=== PATIENT | female | born 1975 | race African-American/Black ===

== ENCOUNTER 2017-08-16 13:38 | Emergency (ER) | payer OTHER ==
[2017-08-16 13:55] VITALS: BP 92/60; PULSE 72; RESP 18; TEMP 98.4
--- NOTE | 2017-08-16 14:14 | ED ---
URI HPI - General Chief Complaint: Upper Respiratory Infection Stated Complaint: ear ache Time Seen by Provider: 08/16/17 13:46 Source: patient, RN notes reviewed Mode of arrival: ambulatory Limitations: no limitations - History of Present Illness Initial Comments: This is a 42-year-old female who presents to the emergency department with chief complaint of upper respiration symptoms. Patient states that she developed symptoms 4 days ago. She believed that it was just her seasonal allergies. She reports sinus congestion and right ear fullness. Patient states that yesterday she developed pain in her left ear. She states that she feels like she is off balance and has difficulty hearing. Denies any fevers or chills. Denies cough or sore throat. Denies shortness of breath or chest pain , abdominal pain, nausea or vomiting. - Related Data Previous Rx's Medication Instructions Recorded Amoxicillin 875 mg PO Q8HR #30 tablet 08/16/17 Allergies Allergy/AdvReac Type Severity Reaction Status Date / Time No Known Allergies Allergy Verified 08/16/17 13:55 Review of Systems ROS Statement: Those systems with pertinent positive or pertinent negative responses have been documented in the HPI. ROS Other: All systems not noted in ROS Statement are negative. Past Medical History Past Medical History: No Reported History History of Any Multi-Drug Resistant Organisms: None Reported Past Surgical History: Tubal Ligation Additional Past Surgical History / Comment(s): right breast biopsy Past Psychological History: No Psychological Hx Reported Smoking Status: Current every day smoker Past Alcohol Use History: Occasional Past Drug Use History: None Reported General Exam - General Exam Comments Initial Comments: General: Awake and alert, well-developed; in no apparent distress. Patient does not appear acutely ill. HEENT: Head atraumatic, normocephalic. Pupils are equal, round and reactive to light. Extraocular movements intact. Oropharynx moist without erythema or exudate. Unable to visualize bilateral TMs due to cerumen impaction. Neck: Supple. Normal ROM. Cardiovascular: Regular rate and rhythm. No murmurs, rubs or gallops. Chest symmetrical. Respiratory: Lungs clear to auscultation bilaterally. No wheezes, rales or rhonchi. Normal respiratory effort with no use of accessory muscles. Musculoskeletal: Normal ROM, no tenderness bilateral upper and lower extremities. Ambulating normally. Skin: [place], warm and dry without rashes or lesions. Neurological: Alert and oriented x3. CN II-XII grossly intact. Speech is fluent and answers are appropriate. No focal neuro deficits. Psychiatric: Normal mood and affect. No overt signs of depression or anxiety noted. Limitations: no limitations Course Vital Signs 08/16/17 13:51 Temperature 98.4 F Pulse Rate 72 Respiratory 18 Rate Blood Pressure 92/60 O2 Sat by Pulse 98 Oximetry Medical Decision Making - Medical Decision Making This is a 42-year-old female who presents to the emergency department with chief complaint of upper respiratory symptoms. Patient first developed right ear fullness and sinus congestion 4 days ago. Yesterday, she then developed pain in her left ear. I'm unable to visualize the TMs due to cerumen impaction. Patient's vital signs are stable and she is afebrile. Likely suffering from a viral upper respiratory infection, however due to the acute onset of left ear pain, patient will be treated for an otitis media. She is in no acute distress and will be discharged home at this time. She is in agreement and voices understanding. All questions were answered. Disposition Clinical Impression: Upper respiratory infection, Otalgia of left ear Disposition: HOME SELF-CARE Condition: Good Instructions: Upper Respiratory Infection (ED), Otitis Media (ED), Earache (ED) Additional Instructions: Please take medications as prescribed. Please follow up with primary care provider within 1-2 days. Return to emergency department if symptoms should worsen or any concerns arise. Prescriptions: Amoxicillin 875 mg PO Q8HR #30 tablet Is patient prescribed a controlled substance at d/c from ED?: No Referrals: None,Stated [Primary Care Provider] - 1-2 days Time of Disposition: 14:21
== END 2017-08-16 14:35 | disposition home or self-care (01) ==
LOC: EC 13:38
DX: J06.9 Acute upper respiratory infection, unspecified (principal); H92.02 Otalgia, left ear; H61.23 Impacted cerumen, bilateral; F17.200 Nicotine dependence, unspecified, uncomplicated
CPT/HCPCS: 99283

== ENCOUNTER → 2017-11-06 | Outpatient (CLI) | payer OTHER ==
--- NOTE | 2017-11-06 19:51 | XR ---
EXAMINATION TYPE: XR chest 2V DATE OF EXAM: 11/06/2017 COMPARISON: 06/07/2014 INDICATION: Mid back pain, pleurisy TECHNIQUE: Frontal and lateral views of the chest are obtained. FINDINGS: The heart size is normal. The pulmonary vasculature is normal. The lungs are clear. IMPRESSION: 1. No acute pulmonary process.
== END | disposition home or self-care (01) ==
LOC: RADXRMAIN 14:06
PROVIDERS: ATTEND Internal Medicine
DX: R09.1 Pleurisy (principal); M54.9 Dorsalgia, unspecified
CPT/HCPCS: 71046

== ENCOUNTER → 2020-02-16 | Outpatient (CLI) | payer BC, OTHER ==
--- NOTE | 2020-02-16 10:38 | CT ---
EXAMINATION TYPE: CT brain wo con DATE OF EXAM: 02/16/2020 COMPARISON: CT 06/04/2011 HISTORY: Headache, Syncope CT DLP: 1029.1 mGycm. Automated Exposure Control for Dose Reduction was Utilized. TECHNIQUE: CT scan of the head is performed without contrast. FINDINGS: There is no acute intracranial hemorrhage, mass effect, or midline shift identified. The ventricles and sulci are within normal limits in size. The globes are intact and the visualized sin uses are remarkable for minimal inflammatory change in the sphenoid sinus. Cerumen present in the ext ernal auditory canal bilaterally. IMPRESSION: No acute intracranial hemorrhage, mass effect, or midline shift is seen. Additional find ings above.
== END | disposition home or self-care (01) ==
LOC: RADCTMAIN 06:32
PROVIDERS: ATTEND Internal Medicine
DX: R55 Syncope and collapse (principal); R51.9 Headache, unspecified
CPT/HCPCS: 70450

== ENCOUNTER → 2020-08-22 | Outpatient (CLI) | payer BC, OTHER ==
--- NOTE | 2020-08-22 10:25 | US ---
EXAMINATION TYPE: US abdomen complete DATE OF EXAM: 08/22/2020 COMPARISON: NONE CLINICAL HISTORY: R10.12 LUQ Pain. Patient states LUQ pain EXAM MEASUREMENTS: Liver Length: 16.4 cm Gallbladder Wall: 0.1 cm CBD: 0.2 cm Spleen: 7.6 cm Right Kidney: 11.2 x 4.2 x 3.7 cm Left Kidney: 10.0 x 4.3 x 3.7 cm Pancreas: wnl Liver: wnl Gallbladder: wnl Evidence for sonographic Meneses's sign: neg CBD: wnl Spleen: Limited visualized by overlying bowel gas Right Kidney: No hydronephrosis or masses seen Left Kidney: No hydronephrosis or masses seen Upper IVC: wnl Abd Aorta: No AAA visualized atherosclerotic irregularity. IMPRESSION: 1. The spleen is not well visualized due to overlying artifact. 2. No gallstones. 3. No hydronephrosis or shadowing renal calculi.
== END | disposition home or self-care (01) ==
LOC: RADUSWWP 08:04
PROVIDERS: ATTEND Internal Medicine
DX: R10.12 Left upper quadrant pain (principal)
CPT/HCPCS: 76700

== ENCOUNTER 2023-05-06 16:39 | Emergency (ER) | payer BC, OTHER ==
[2023-05-06 16:52] VITALS: BP 129/96; PULSE 94; RESP 16; TEMP 98.8
--- NOTE | 2023-05-06 17:10 | ED ---
Extremity Problem HPI - General Source: patient, RN notes reviewed Mode of arrival: ambulatory Limitations: no limitations <Valeria Reynolds - Last Filed: 05/06/23 17:09> <Kemar Purvis - Last Filed: 05/06/23 21:19> - General Chief complaint: Extremity Problem,Nontraumatic Stated complaint: Rt foot pain, weak Time Seen by Provider: 05/06/23 17:09 - History of Present Illness Initial comments: Patient is a 47-year-old female presented to ER with a chief complaint of right ankle pain. Denies any injury. Patient states been on for the past couple of days. (Valeria Reynolds) 47-year-old female presenting to the ED with a chief complaint of right ankle pain. Denies any injury or trauma. States she has had pain at the bottom of her foot/ankle for the past few days. States pain is worse with ambulation. No other complaints at this time. (Kemar Purvis) - Related Data Previous Rx's Medication Instructions Recorded Amoxicillin 875 mg PO Q8HR #30 tablet 08/16/17 Penicillin V Potassium [Pen Vee K] 500 mg PO TID 10 Days #30 tablet 01/05/23 Allergies Allergy/AdvReac Type Severity Reaction Status Date / Time No Known Allergies Allergy Verified 01/05/23 15:36 Review of Systems ROS Other: All systems not noted in ROS Statement are negative. <Valeria Reynolds - Last Filed: 05/06/23 17:09> ROS Other: All systems not noted in ROS Statement are negative. <Kemar Purvis - Last Filed: 05/06/23 21:19> ROS Statement: Those systems with pertinent positive or pertinent negative responses have been documented in the HPI. Past Medical History Past Medical History: No Reported History History of Any Multi-Drug Resistant Organisms: None Reported Past Surgical History: Tubal Ligation Additional Past Surgical History / Comment(s): right breast biopsy, rhinoplasty Past Psychological History: No Psychological Hx Reported Smoking Status: Current every day smoker Past Alcohol Use History: Occasional Past Drug Use History: None Reported <Valeria Reynolds - Last Filed: 05/06/23 17:09> General Exam Limitations: no limitations <Valeria Reynolds - Last Filed: 05/06/23 17:09> General appearance: alert, in no apparent distress Head exam: Present: atraumatic, normocephalic Neck exam: Present: normal inspection Respiratory exam: Present: normal lung sounds bilaterally Cardiovascular Exam: Present: regular rate, normal rhythm GI/Abdominal exam: Present: soft Extremities exam: Present: other (Right lower extremity shows full strength and sensation. DP/PT pulses 2+. Right foot/ankle shows no other skin changes including warmth, erythema, edema, ecchymosis.) Neurological exam: Present: alert, oriented X3 <Kemar Purvis - Last Filed: 05/06/23 21:19> - General Exam Comments Initial Comments: Visual Physical Exam Vital signs reviewed General: Well-appearing, nontoxic, no acute distress. Head: Normocephalic, atraumatic Eyes: PERRLA, EOMI ENT: Airway patent Chest: Nonlabored breathing Skin: No visual rash, normal skin tone Neuro: Alert and oriented 3 Musculoskeletal: No gross abnormalities (Valeria Reynolds) Course Vital Signs 05/06/23 16:42 Temperature 98.8 F Pulse Rate 94 Respiratory 16 Rate Blood Pressure 129/96 O2 Sat by Pulse 96 Oximetry Medical Decision Making <Valeria Reynolds - Last Filed: 05/06/23 17:09> <Kemar Purvis - Last Filed: 05/06/23 21:19> - Medical Decision Making I performed the quick note portion of the exam. Electronically signed by Valeria Reynolds PA-C (Valeria Reynolds) Was pt. sent in by a medical professional or institution ([facility], SAMPLING THEORY TEACHER, urgent care, hospital, or correction...) When possible be specific @ -No Did you speak to anyone other than the patient for history (EMS, parent, family, police, friend...)? What history was obtained from this source @ -No Did you review nursing and triage notes (agree or disagree)? Why? @ -I reviewed and agree with nursing and triage notes Were old charts reviewed (outside hosp., previous admission, EMS record, old EKG, old radiological studies, urgent care reports/EKG's, correction records)? Report findings @ -No old charts were reviewed Differential Diagnosis (chest pain, altered mental status, abdominal pain women, abdominal pain men, vaginal bleeding, weakness, fever, dyspnea, syncope, headache, dizziness, GI bleed, back pain, seizure, CVA, palpatations, mental health, musculoskeletal)? @ -Differential Musculoskeletal Muscular strain, contusion, ligament sprain, fracture, arthritis, septic arthritis, bursitis, cellulitis, muscle spasm, nerve compression, DVT, arterial occlusion, herpes zoster, electrolyte abnormality, tumor.... This is not meant to be in all inclusive list EKG interpreted by me (3pts min.). @ -None X-rays interpreted by me (1pt min.). @ -X-ray of the right foot and ankle interpreted by me showing no evidence of acute finding. CT interpreted by me (1pt min.). @ -None done U/S interpreted by me (1pt. min.). @ -Ultrasound of the right lower extremity interpreted by me showing no evidence of DVT or other acute finding. What testing was considered but not performed or refused? (CT, X-rays, U/S, labs)? Why? @ -None What meds were considered but not given or refused? Why? @ -None Did you discuss the management of the patient with other professionals (professionals i.e. , PA, SAMPLING THEORY TEACHER, lab, RT, psych nurse, director social service, or scrub tech, teacher, press officer, correctional case manager)? Give summary @ -No Was smoking cessation discussed for >3mins.? @ -No Was critical care preformed (if so, how long)? @ -No Were there social determinants of health that impacted care today? How? (Homelessness, low income, unemployed, alcoholism, drug addiction, transportation, low edu. Level, literacy, decrease access to med. care, retirement, re hab)? @ -No Was there de-escalation of care discussed even if they declined (Discuss DNR or withdrawal of care, Hospice)? DNR status @ -No What co-morbidities impacted this encounter? (DM, HTN, Smoking, COPD, CAD, Cancer, CVA, ARF, Chemo, Hep., AIDS, mental health diagnosis, sleep apnea, morbid obesity)? @ -None Was patient admitted / discharged? Hospital course, mention meds given and route, prescriptions, significant lab abnormalities, going to OR and other pertinent info. @ -Discharge 47-year-old female presenting to the ED with a chief complaint of right foot/ankle pain for the past few days worse with ambulation. Imaging studies at this time revealed no evidence of acute findings. Symptoms likely musculoskeletal in nature. Discharged home in stable condition. At discharge vital signs stable afebrile. Advised to follow-up with her PCP. Discussed return precaution patient verbalized agreement. Undiagnosed new problem with uncertain prognosis? @ -No Drug Therapy requiring intensive monitoring for toxicity (Heparin, Nitro, Insulin, Cardizem)? @ -No Were any procedures done? @ -No Diagnosis/symptom? @ -Right foot/Ankle pain Acute, or Chronic, or Acute on Chronic? @ -Acute Uncomplicated (without systemic symptoms) or Complicated (systemic symptoms)? @ -Uncomplicated Side effects of treatment? @ -No Exacerbation, Progression, or Severe Exacerbation? @ -No Poses a threat to life or bodily function? How? (Chest pain, [place], [place], pneumonia, PE, COPD, DKA, ARF, appy, cholecystitis, CVA, Diverticulitis, Homicidal, Suicidal, threat to staff... and all critical care pts) @ -No (Kemar Purvis) Disposition <Valeria Reynolds - Last Filed: 05/06/23 17:09> Is patient prescribed a controlled substance at d/c from ED?: No Time of Disposition: 21:19 <Kemar Purvis - Last Filed: 05/06/23 21:19> Clinical Impression: Right ankle pain Disposition: HOME SELF-CARE Condition: Good Additional Instructions: Please return to the Emergency Department if symptoms worsen or any other concerns. Please follow-up with your primary care provider. Referrals: None,Stated [Primary Care Provider] - 1-2 days
--- NOTE | 2023-05-06 17:32 | XR ---
EXAMINATION TYPE: XR ankle complete RT, XR foot complete RT DATE OF EXAM: 05/06/2023 5:20 PM CLINICAL INDICATION:Female, 47 years old with history of pain; [facility] COMPARISON: 11/27/2013 TECHNIQUE: XR ankle complete RT, XR foot complete RT; ankle is imaged in frontal, lateral and obliqu e projections. FINDINGS: There is no evidence of acute osseous pathology. The joint spaces are well-preserved without evidenc e of subluxation or dislocation. Kager's fat pad is intact. Soft tissues are within normal limits. No radiopaque foreign bodies are identified. IMPRESSION: 1. No evidence of acute fracture.
--- NOTE | 2023-05-06 20:48 | US ---
EXAMINATION TYPE: US venous doppler duplex LE RT DATE OF EXAM: 05/06/2023 7:30 PM COMPARISON: NONE CLINICAL INDICATION: Female, 47 years old with history of r/o dvt; Ankle and foot swelling. No hx of DVT. Not on blood thinners SIDE PERFORMED: Right TECHNIQUE: The lower extremity deep venous system is examined utilizing real time linear array sonog ayaz with graded compression, doppler sonography and color-flow sonography. VESSELS IMAGED: Common Femoral Vein Deep Femoral Vein Greater Saphenous Vein * Femoral Vein Popliteal Vein Small Saphenous Vein * Proximal Calf Veins (* superficial vessels) Right Leg: Negative for DVT IMPRESSION: Grayscale, color doppler, spectral doppler imaging performed of the deep veins of the lo wer extremities. There is normal flow, compressibility, vascular waveforms.
[2023-05-06] MEDS ORDERED: ACET/COD 300 MG/30 MG STARTER PACK 6 TAB BTL PO STA (21:14)
[2023-05-06] MEDS ORDERED: KETOROLAC 15 MG/ML 1 ML VIAL IM STA (21:14)
== END 2023-05-06 21:30 | disposition home or self-care (01) ==
LOC: EC 16:39
DX: M25.571 Pain in right ankle and joints of right foot (principal); F17.200 Nicotine dependence, unspecified, uncomplicated
CPT/HCPCS: 73610; 73630; 93971; 99284; 96372; J1885

== ENCOUNTER 2024-07-02 11:21 | Emergency (ER) | payer BC ==
--- NOTE | 2024-07-02 11:38 | ED ---
ENT HPI - General Chief complaint: Dental/Oral Stated complaint: Dental issue Time Seen by Provider: 07/02/24 11:36 Source: patient, RN notes reviewed Mode of arrival: ambulatory Limitations: no limitations - History of Present Illness Initial comments: This is a 49-year-old female with no reported medical conditions presents emergency room for complaint of dental pain. Patient states that she has recently enrolled in health insurance and is tempting to make an appoint with dentist. She is concerned that she has been having dental pain most notably in the front maxillary teeth that is been worsening over the past few days. Patient states that over the past 2 days she has noticed swelling of the upper lip. She denies fevers, chills, dysphagia, difficulty breathing. Denies current or recent antibiotic use. She has been taking ibuprofen and Tylenol with minimal relief of symptoms. No other acute complaints at this time. - Related Data Previous Rx's Medication Instructions Recorded Amoxicillin 875 mg PO Q8HR #30 tablet 08/16/17 Penicillin V Potassium [Pen Vee K] 500 mg PO TID 10 Days #30 tablet 01/05/23 Amoxicillin 875 mg PO Q12HR #20 tablet 07/02/24 Ibuprofen [Motrin] 800 mg PO Q6HR #30 tab 07/02/24 Allergies Allergy/AdvReac Type Severity Reaction Status Date / Time No Known Allergies Allergy Verified 07/02/24 11:35 Review of Systems ROS Statement: Those systems with pertinent positive or pertinent negative responses have been documented in the HPI. ROS Other: All systems not noted in ROS Statement are negative. Past Medical History Past Medical History: No Reported History History of Any Multi-Drug Resistant Organisms: None Reported Past Surgical History: Tubal Ligation Additional Past Surgical History / Comment(s): right breast biopsy, rhinoplasty Past Psychological History: No Psychological Hx Reported Smoking Status: Current every day smoker Past Alcohol Use History: Occasional Past Drug Use History: None Reported General Exam Limitations: no limitations General appearance: alert, in no apparent distress Expanded Teeth exam: Present: dental caries, fractured tooth #, dental tenderness #, other (dental abscess of the frontal maxillary teeth). Absent: normal inspection Neck exam: Present: normal inspection. Absent: tenderness, meningismus, lymphadenopathy Respiratory exam: Present: normal lung sounds bilaterally. Absent: respiratory distress, wheezes, rales, rhonchi, stridor Cardiovascular Exam: Present: regular rate, normal rhythm, normal heart sounds. Absent: systolic murmur, diastolic murmur, rubs, gallop, clicks GI/Abdominal exam: Present: soft, normal bowel sounds. Absent: distended, tenderness, guarding, rebound, rigid Course Vital Signs 07/02/24 07/02/24 11:32 12:33 Temperature 98.0 F 98.6 F Pulse Rate 70 111 H Respiratory 17 20 Rate Blood Pressure 118/81 160/99 O2 Sat by Pulse 97 99 Oximetry Medical Decision Making - Medical Decision Making Was pt. sent in by a medical professional or institution (, [facility], DAY CARE HOME MOTHER, urgent care, hospital, or correction...) When possible be specific @ -No Did you speak to anyone other than the patient for history (EMS, parent, family, police, friend...)? What history was obtained from this source @ -No Did you review nursing and triage notes (agree or disagree)? Why? @ -I reviewed and agree with nursing and triage notes Were old charts reviewed (outside hosp., previous admission, EMS record, old EKG, old radiological studies, urgent care reports/EKG's, correction records)? Report findings @ -No old charts were reviewed Differential Diagnosis (chest pain, altered mental status, abdominal pain women, abdominal pain men, vaginal bleeding, weakness, fever, dyspnea, syncope, headache, dizziness, GI bleed, back pain, seizure, CVA, palpatations, mental health, musculoskeletal)? @ -Dental abscess, pulpitis, gingivitis, fractured tooth, this list is not all inclusive EKG interpreted by me (3pts min.). @ -None X-rays interpreted by me (1pt min.). @ -None done CT interpreted by me (1pt min.). @ -None done U/S interpreted by me (1pt. min.). @ -None done What testing was considered but not performed or refused? (CT, X-rays, U/S, labs)? Why? @ -None What meds were considered but not given or refused? Why? @ -None Did you discuss the management of the patient with other professionals (professionals i.e. , [facility], DAY CARE HOME MOTHER, lab, RT, psych nurse, social science professor, supervisor ride assembly, teacher, staff mine warfare officer, gearcase assembler)? Give summary @ -No Was smoking cessation discussed for >3mins.? @ -No Was critical care preformed (if so, how long)? @ -No Were there social determinants of health that impacted care today? How? (Homelessness, low income, unemployed, alcoholism, drug addiction, transportation, low edu. Level, literacy, decrease access to med. care, retirement, rehab)? @ -No Was there de-escalation of care discussed even if they declined (Discuss DNR or withdrawal of care, Hospice)? DNR status @ -No What co-morbidities impacted this encounter? (DM, HTN, Smoking, COPD, CAD, Cancer, CVA, ARF, Chemo, Hep., AIDS, mental health diagnosis, sleep apnea, morbid obesity)? @ -None Was patient admitted / discharged? Hospital course, mention meds given and route, prescriptions, significant lab abnormalities, going to OR and other pertinent info. @ -Discharge. 49-year-old female presenting to the emergency department for complaint of dental pain. There is noted mild upper lip swelling. Vitals are stable. On exam there is a dental abscess. Area was lanced with a 25-gauge needle with immediate purulent return. Patient is provided with outpatient prescription for ibuprofen 800 and amoxicillin instructed follow-up with dentist. Return parameters discussed. Case discussed with Dr. Nevarez Undiagnosed new problem with uncertain prognosis? @ -No Drug Therapy requiring intensive monitoring for toxicity (Heparin, Nitro, Insulin, Cardizem)? @ -No Were any procedures done? @ -No Diagnosis/symptom? @ -Dental abscess, dental pain, fractured teeth Acute, or Chronic, or Acute on Chronic? @ -Acute Uncomplicated (without systemic symptoms) or Complicated (systemic symptoms)? @ -Uncomplicated Side effects of treatment? @ -No Exacerbation, Progression, or Severe Exacerbation? @ -No Poses a threat to life or bodily function? How? (Chest pain, [place], [place], pneumonia, PE, COPD, DKA, ARF, appy, cholecystitis, CVA, Diverticulitis, Homicidal, Suicidal, threat to staff... and all critical care pts) @ -No Disposition Clinical Impression: Dental abscess Disposition: HOME SELF-CARE Condition: Good Instructions (If sedation given, give patient instructions): Dental Abscess (ED) Additional Instructions: Please return to the Emergency Department if symptoms worsen or any other concerns. Prescriptions: Amoxicillin 875 mg PO Q12HR #20 tablet Ibuprofen [Motrin] 800 mg PO Q6HR #30 tab Is patient prescribed a controlled substance at d/c from ED?: No Referrals: Adeel Banegas III, MD [Primary Care Provider] - 1-2 days Time of Disposition: 11:54
[2024-07-02] MEDS: AMOXICILLIN 875 MG TAB PO STA (12:23)
[2024-07-02] MEDS: Acetaminophen-Codeine 300-30mg TAB PO STA (12:23)
[2024-07-02 12:35] VITALS: BP 160/99; PULSE 111; RESP 20; TEMP 98.6
== END 2024-07-02 12:33 | disposition home or self-care (01) ==
LOC: EC 11:21
DX: K04.7 Periapical abscess without sinus (principal); F17.200 Nicotine dependence, unspecified, uncomplicated
CPT/HCPCS: 99282